=== PATIENT | female | born 1995 | race Two or more races ===

== ENCOUNTER → 2024-01-22 | Outpatient (CLI) | payer BC, SELFPAY ==
[2024-01-23 14:44] LABS: BVAG Candida Negative (Negative); Bacterial Vaginosis Markers Negative (Negative); Candida glabrata Negative (Negative); Candida krusei PCR Negative (Negative); Trichomonas Negative (Negative)
== END | disposition home or self-care (01) ==
LOC: SLDO 15:06
PROVIDERS: PCP Specialist; Referring Provider Specialist; Visit Provider Specialist
DX: N76.0 Acute vaginitis (principal); B37.89 Other sites of candidiasis; A59.01 Trichomonal vulvovaginitis
CPT/HCPCS: 81514